=== PATIENT | female | born 1960 | race Hispanic/Latino ===

== ENCOUNTER 2023-01-29 13:21 | Emergency (ER) | payer BC, OTHER ==
[~2023-01-29] VITALS: Ht 152.4 cm; Wt 72.6 kg
[~2023-01-29 13:21] MED LIST: AMITRIPTYLINE H25 MG PO; CHLORDIAZEPOXI1 EACH; DEXILANT60 MG PO; JANUVIA100 MG; LIPITOR40 MG; LOMOTIL TABLET1 EACH PO; METOPROLOL SUCC25 MG PO; NITROSTAT0.4 MG PO; VIMOVO DR PO; Z.0.GLIPIZIDE10 MG PO; Z.0.NEXIUM40 MG PO; Z.1.METFORMIN HCL100 PO
[2023-01-29] MEDS ORDERED: SODIUM CHLORIDE 0.9% 1000ML 1,000 ML IV STA (13:43)
[2023-01-29] MEDS ORDERED: KETOROLAC TROMETHAMINE 30 MG/ML VIAL IV STA (13:43)
[2023-01-29 14:05] LABS: BASOPHILS % 0.5 % (0.0-1.0); EOSINOPHILS # (AUTO) 0.1 (0.0-0.4); EOSINOPHILS % 0.8 % (0.0-6.0); HEMATOCRIT 43.2 % (34.2-44.1); HEMOGLOBIN 14.4 g/dL (12.0-16.0); LYMPHOCYTES # (AUTO) 2.6 (1.0-3.2); LYMPHOCYTES % 30.2 % (18.0-39.1); MEAN CORPUSCULAR HEMOGLOBIN 30.9 pg (28-32); MEAN CORPUSCULAR HGB CONC 33.3 g/dL (31-35); MEAN CORPUSCULAR VOLUME 92.7 fL (81-99); MONOCYTES # (AUTO) 0.7 (0.2-0.8); MONOCYTES % 7.5 % (4.4-11.3); NEUTROPHILS # (AUTO) 5.3 (2.1-6.9); NEUTROPHILS % 60.8 % (38.7-80.0); PLATELET COUNT 229 x10e3/uL (140-360); RED BLOOD COUNT 4.66 x10e6/uL (3.6-5.1); RED CELL DISTRIBUTION WIDTH 12.1 % (11.7-14.4)
[2023-01-29 14:13] LABS: CLARITY,URINE CLEAR (CLEAR); COLOR,URINE YELLOW (YELLOW); KETONES,URINE NEGATIVE (NEGATIVE); LEUKOCYTE ESTERASE ,URINE NEGATIVE (NEGATIVE); PROTEIN,URINE DIPSTICK NEGATIVE (NEGATIVE); URINE UROBILINOGEN 0.2 mg/dL (0.2 - 1)
[2023-01-29 14:18] LABS: ALBUMIN 4.1 g/dL (3.5-5.0); ALBUMIN/GLOBULIN RATIO 1.2 (0.8-2.0); ANION GAP 13.3 mmol/L (8-16); CALCIUM 9.9 mg/dL (8.4-10.2); CREATININE, SERUM 0.77 mg/dL (0.57-1.11); POTASSIUM 4.3 mmol/L (3.5-5.1)
[2023-01-29 14:26] LABS: BACTERIA,URINE RARE /HPF; EPITHELIAL CELLS,URINE MODERATE /LPF; WBC,URINE (MAN) 0-5 /HPF (0-5)
[2023-01-29 14:46] LABS: NITRITE,URINE NEGATIVE (NEGATIVE)
[2023-01-29] MEDS ORDERED: ONDANSETRON ODT4 MG PO (16:03)
[2023-01-29] MEDS ORDERED: ANAPROX DS550 MG PO (16:03)
[2023-01-29 16:53] VITALS: BP 162/78; PULSE 87; RESP 16; TEMP 98.4; O2SAT 100
== END 2023-01-29 16:56 | disposition home or self-care (01) ==
LOC: ER 13:38
DX: R30.0 Dysuria (principal); N20.0 Calculus of kidney; R10.30 Lower abdominal pain, unspecified; M54.50 Low back pain, unspecified
CPT/HCPCS: 36415; 74176; 80053; 81001; 83690; 85025; 99284; J1885; J7030

== ENCOUNTER → 2025-02-21 | Day surgery (SDC) | payer OTHER ==
[~2025-02-21] MED LIST changes: +ANAPROX DS550 MG PO; +GABAPENTIN300 MG PO; +GLUCAGON FOR INJ 1 MG VIAL ONE; +GLYCOPYRROLATE INJ 0.2 MG/ML VIAL ONE; +HYOSCYAMINE SULFATE 0.5 MG/ML INJ ONE; +LIDOCAINE HCL 2% LOCAL INJ 5 ML SDV VIAL INJ ONE; +METOCLOPRAMIDE HCL 10 MG/2ML VIAL ONE; +NOVOLOG100 UNIT/1 SC; +ONDANSETRON ODT4 MG PO; +PROPOFOL IV EMULSION 50 ML IV ONE; +TRESIBA100 UNIT/1 SC; +TYLENOL325 MG PO
[2025-02-21] MEDS: LACTATED RINGER'S 1,000 ML ONE (08:47)
[2025-02-21 11:47] VITALS: TEMP 97.1
[2025-02-21 12:10] VITALS: BP 130/83; PULSE 90; RESP 18; O2SAT 98
== END | disposition home or self-care (01) ==
LOC: OR 08:10
PROVIDERS: ATTEND Internal Medicine Gastroenterology
DX: K22.2 Esophageal obstruction (principal); D12.3 Benign neoplasm of transverse colon; K29.50 Unspecified chronic gastritis without bleeding; K31.89 Other diseases of stomach and duodenum; K20.90 Esophagitis, unspecified without bleeding; K31.84 Gastroparesis; K59.04 Chronic idiopathic constipation; K62.89 Other specified diseases of anus and rectum; K21.9 Gastro-esophageal reflux disease without esophagitis; K57.30 Diverticulosis of large intestine without perforation or abscess without bleeding; K64.8 Other hemorrhoids; E11.9 Type 2 diabetes mellitus without complications; R03.0 Elevated blood-pressure reading, without diagnosis of hypertension; Z71.89 Other specified counseling; Z01.810 Encounter for preprocedural cardiovascular examination; Z79.84 Long term (current) use of oral hypoglycemic drugs; Z79.4 Long term (current) use of insulin; Z68.31 Body mass index [BMI] 31.0-31.9, adult; Z71.3 Dietary counseling and surveillance
CPT/HCPCS: 36415; 43239; 43450; 45385; 82948; 93005; J1610; J1980; J2003; J2470; J2704; J2765; J7121; 45378